=== PATIENT | female | born 1950 | race Caucasian/White ===

== ENCOUNTER 2016-09-09 09:04 | Inpatient (IN) | payer MEDICAID ==
[2016-09-09 09:07] VITALS: BMI 41.7
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
[2016-09-09] MEDS ORDERED: Morphine 4 MG/ML VIAL ONE (10:12)
[2016-09-09] MEDS ORDERED: Sodium Chloride 0.9% 1,000 ML IV ONE (11:01)
[2016-09-09] MEDS ORDERED: Sodium Chloride 0.9% 1,000 ML ONE (11:35)
[2016-09-09 11:56] LABS: BASO % 0.1 % (0.0-2.0); EOS % 0.2 % (0.0-4.0); HEMATOCRIT 37.1 % (34.0-47.0); LYMPH # 0.9 K/uL (1.0-4.3); LYMPH % 7.6 % (20.0-40.0); MEAN CELL VOLUME 89.2 fL (81.0-99.0); MEAN CORPUSCULAR HEMOGLOBIN 29.1 pg (27.0-31.0); MEAN CORPUSCULAR HGB CONC 32.6 g/dL (33.0-37.0); MEAN PLATELET VOLUME 10.4 fL (7.2-11.7); MONO # 0.4 K/uL (0.0-0.8); MONO % 3.2 % (0.0-10.0); NRBC % 0.1 % (0.0-2.0); PLATELET COUNT 174 K/uL (130-400); RED CELL DISTRIBUTION WIDTH 13.5 % (11.5-14.5); WHITE BLOOD COUNT 12.2 K/uL (4.8-10.8)
--- NOTE | 2016-09-09 12:03 | RAD ---
PROCEDURE: Radiographs of the left humerus. HISTORY: TRAUMA COMPARISON: Correlation made with concurrent radiographs of the left shoulder FINDINGS: BONES: Comminuted fracture of the proximal left humeral head and proximal humeral shaft. There appears to be anterior inferior dislocation of the left humeral head with respect to the glenoid. SOFT TISSUES: Normal. OTHER FINDINGS: None. IMPRESSION: Comminuted fracture of the proximal left humeral head and proximal humeral shaft. There appears to be anterior inferior dislocation of the left humeral head with respect to the glenoid.
[2016-09-09 12:04] LABS: CHLORIDE 101 mmol/L (98-107); POTASSIUM 3.9 mmol/L (3.6-5.2); SODIUM 137 mmol/L (132-148)
[2016-09-09 12:06] LABS: BILIRUBIN,TOTAL 0.7 mg/dL (0.2-1.3); GFR AFRICAN-AMERICAN > 60
--- NOTE | 2016-09-09 12:06 | RAD ---
PROCEDURE: Radiographs of the Left Shoulder HISTORY: TRAUMA COMPARISON: No correlation made with concurrent radiograph of the left humerus FINDINGS: BONES: Comminuted fracture of the proximal left humeral head and proximal humeral shaft. There appears to be anterior inferior dislocation of the left humeral head with respect to the glenoid. Questionable fracture inferior glenoid rim JOINTS: As above SOFT TISSUES: Normal. OTHER FINDINGS: None. IMPRESSION: Comminuted fracture of the proximal left humeral head and proximal humeral shaft. There appears to be anterior inferior dislocation of the left humeral head with respect to the glenoid. Questionable fracture inferior glenoid rim
[2016-09-09 12:07] LABS: ALB/GLOB RATIO 1.3 (1.0-2.1); ALKALINE PHOSPHATASE 94 U/L (38-126); ALT/SGPT 20 U/L (9-52); AST/SGOT 22 U/L (14-36); BLOOD UREA NITROGEN 19 mg/dL (7-17); CARBON DIOXIDE 27 mmol/L (22-30); GLUCOSE,RANDOM 179 mg/dL (65-105); TOTAL PROTEIN 6.7 g/dL (6.3-8.3)
[2016-09-09 12:08] LABS: CALCIUM 8.5 mg/dl (8.6-10.4)
[2016-09-09 12:13] LABS: INR 1.3; NEUTROPHIL 86 % (50-75); REACTIVE LYMPHOCYTES 1 % (0-0); TOTAL CELLS COUNTED 100
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
[2016-09-09] MEDS: Pantoprazole 40 mg EC Tab PO SCH (13:35)
[2016-09-09] MEDS: (Novolin R) Insulin Human Regular 100 units/ml vial SC SCH ×2 (17:34→21:25)
--- NOTE | 2016-09-09 19:44 | RAD ---
PROCEDURE: CHEST RADIOGRAPH, 1 VIEW HISTORY: Pre Op COMPARISON: None available. FINDINGS: LUNGS: Poor inspiration with low lung volumes, mild crowded bronchovascular markings and mild bibasilar atelectasis PLEURA: No pneumothorax or pleural fluid seen. CARDIOVASCULAR: Cardiomegaly OSSEOUS STRUCTURES: Comminuted fracture of the left humeral head and neck with inferior dislocation of the left humeral head with respect to the glenoid apparent inferior dislocation left humeral head with respect to the glenoid. There also appears to be a dextroscoliosis centered in the upper/mid thoracic region. This could be compensatory for a levoscoliosis of the lumbar spine. Clinic correlation recommended. VISUALIZED UPPER ABDOMEN: Normal. OTHER FINDINGS: None. IMPRESSION: Comminuted fracture left humeral head/neck with apparent. Poor inspiration with low lung volumes, mild crowded bronchovascular markings and mild bibasilar atelectasis
--- NOTE | 2016-09-09 19:45 | RAD ---
PROCEDURE: Left Knee Radiographs. HISTORY: Pain. COMPARISON: None. FINDINGS: BONES: No definitive radiographic evidence of acute displaced fracture nor dislocation. The osseous structures intact. Significant tricompartmental degenerative osteoarthritis. JOINTS: Normal. No osteoarthritis. JOINT EFFUSION: Questionable trace joint effusion OTHER FINDINGS: None. IMPRESSION: No definitive radiographic evidence of acute displaced fracture nor dislocation. The osseous structures intact. .Significant tricompartmental degenerative osteoarthritis. Questionable trace joint effusion. If symptoms persist or occult fracture suspected clinically, consider followup CT scan of the
[2016-09-10] MEDS: Levothyroxine 75 MCG TAB PO SCH (05:38)
[2016-09-10] MEDS: (Novolin R) Insulin Human Regular 100 units/ml vial SC SCH ×4 (07:45→22:35)
[2016-09-10 07:59] LABS: ALKALINE PHOSPHATASE 83 U/L (38-126); ALT/SGPT 24 U/L (9-52); AST/SGOT 21 U/L (14-36); BILIRUBIN,TOTAL 1.2 mg/dL (0.2-1.3); BLOOD UREA NITROGEN 11 mg/dL (7-17); CARBON DIOXIDE 26 mmol/L (22-30); CHLORIDE 102 mmol/L (98-107); CHOLESTEROL 144 mg/dL (0-199); GFR AFRICAN-AMERICAN > 60; GLUCOSE,RANDOM 115 mg/dL (65-105); POTASSIUM 3.8 mmol/L (3.6-5.2); SODIUM 135 mmol/L (132-148); TOTAL PROTEIN 6.1 g/dL (6.3-8.3)
[2016-09-10 08:03] LABS: BASO % 0.3 % (0.0-2.0); EOS # 0.1 K/uL (0.0-0.7); EOS % 0.8 % (0.0-4.0); HEMATOCRIT 34.7 % (34.0-47.0); LYMPH # 1.6 K/uL (1.0-4.3); LYMPH % 23.9 % (20.0-40.0); MEAN CORPUSCULAR HEMOGLOBIN 29.8 pg (27.0-31.0); MEAN CORPUSCULAR HGB CONC 33.4 g/dL (33.0-37.0); MEAN PLATELET VOLUME 10.5 fL (7.2-11.7); MONO # 0.3 K/uL (0.0-0.8); MONO % 5.3 % (0.0-10.0); NRBC % 0.1 % (0.0-2.0); RED CELL DISTRIBUTION WIDTH 13.6 % (11.5-14.5); WHITE BLOOD COUNT 6.5 K/uL (4.8-10.8)
--- NOTE | 2016-09-10 10:34 | CP.PCM.PN ---
<Luiz Greenfield - Last Filed: 09/10/16 10:31> Subjective - Date & Time of Evaluation Date of Evaluation: 09/10/16 Time of Evaluation: 08:00 - Subjective Subjective: Medicine Note- Hospitalist Service Patient was seen and examined at bedside. Patient reports no acute complaints at this time. She still complain of shoulder pain. Patient understands she will be going for surgery tomorrow. No events overnight, per nursing. Objective - Vital Signs/Intake and Output Vital Signs (last 24 hours): Temp Pulse Resp BP Pulse Ox 97.5 F L 71 20 117/60 94 L 09/10/16 08:00 09/10/16 08:00 09/10/16 08:00 09/10/16 08:00 09/10/16 08:00 Intake and Output: 09/10/16 09/10/16 06:59 18:59 Intake Total 240 Balance 240 - Medications Medications: Current Medications Alprazolam (Xanax) 0.5 mg PO TID PRN PRN Reason: Anxiety Insulin Human Regular (Novolin R) 0 unit SC ACHS [facility] PRN Reason: Protocol Last Admin: 09/09/16 21:25 Dose: Not Given Levothyroxine Sodium (Synthroid) 75 mcg PO DAILY@0630 [facility] Last Admin: 09/10/16 05:38 Dose: 75 mcg Losartan Potassium (Cozaar) 100 mg PO DAILY [facility] Last Admin: 09/09/16 13:35 Dose: 100 mg Metformin HCl (Glucophage) 1,000 mg PO BID [facility] Last Admin: 09/09/16 17:32 Dose: 1,000 mg Morphine Sulfate (Morphine) 2 mg IVP Q4 PRN PRN Reason: Pain, severe (8-10) Last Admin: 09/10/16 02:56 Dose: 2 mg Pantoprazole Sodium (Protonix Ec Tab) 40 mg PO DAILY [facility] Last Admin: 09/09/16 13:35 Dose: 40 mg - Labs Labs: 09/10/16 07:26 09/10/16 07:26 PT 14.3 SECONDS (9.7-12.2) H 09/09/16 11:48 INR 1.3 09/09/16 11:48 APTT 39 SECONDS (21-34) H 09/09/16 11:48 - Constitutional Appears: Non-toxic, No Acute Distress - Head Exam Head Exam: ATRAUMATIC, NORMAL INSPECTION, NORMOCEPHALIC - Eye Exam Pupil Exam: NORMAL ACCOMODATION, PERRL - ENT Exam ENT Exam: Mucous Membranes Moist - Respiratory Exam Respiratory Exam: Clear to Ausculation Bilateral, NORMAL BREATHING PATTERN. absent: Prolonged Expiratory Phase, Rales, Rhonchi, Wheezes - Cardiovascular Exam Cardiovascular Exam: REGULAR RHYTHM, +S1, +S2 - GI/Abdominal Exam GI & Abdominal Exam: Soft, Normal Bowel Sounds. absent: Tenderness, Diminished Bowel Sounds, Hernia, Hyperactive Bowel Sounds, Hypoactive Bowel Sounds - Extremities Exam Extremities Exam: Normal Capillary Refill Additional comments: left shoulder still in sling, limited mobility, tender - Neurological Exam Neurological Exam: Alert, Awake, Oriented x3 - Psychiatric Exam Psychiatric exam: Normal Affect, Normal Mood - Skin Skin Exam: Dry, Intact, Normal Color, Warm Assessment and Plan (1) Fracture dislocation of left shoulder joint Status: Acute (2) Hypertension Status: Acute (3) Diabetes Status: Acute (4) Hyperlipidemia Status: Acute (5) Hypothyroid Status: Acute (6) Prophylactic measure Status: Acute - Assessment and Plan (Free Text) Assessment: (1) Fracture dislocation of left shoulder joint Status: Acute Comment: Humerus Xray- 09/09/16- Comminuted fracture of the proximal left humeral head and proximal humeral shaft. There appears to be anterior inferior dislocation of the left humeral head with respect to the glenoid. Shoulder X ray- Comminuted fracture of the proximal left humeral head and proximal humeral shaft. There appears to be anterior inferior dislocation of the left humeral head with respect to the glenoid. Questionable fracture inferior glenoid rim. F /u Knee Xray. f/u CXR. EKG- NSR w occasional PVCs, prolonged QT, nonspecific T wave changes- 70 bpm. Scheduled for OR on sunday, NPO after MN on Sunday. Detsky score - 0- 6% risk of cardiac complications. Patient may proceed with OR (2) Hypertension Status: Acute Comment: Continue home med equivalent- Losartan 100mg PO Daily (3) Diabetes Status: Acute Comment: Heart Healthy, mod CHO diet. Accucheck. RISS. Metformin 1000mg PO BID. f/u Hgb A1C (4) Hyperlipidemia Status: Acute Comment: Patient is not currently on medications. Will recheck FLP (5) Hypothyroid Status: Acute Comment: continue home med: levothyroxine 75mcg PO Daily . F/u TSH (6) Anxiety Status: Acute Comment: Xanax 0.5mg TID PRN (7) Prophylactic measure Status: Acute Comment: Protonix 40mg PO Daily. Hold Heparin due to preop. SCDs <Rc Falcon H - Last Filed: 09/10/16 11:05> Objective - Vital Signs/Intake and Output Vital Signs (last 24 hours): Temp Pulse Resp BP Pulse Ox 97.5 F L 71 20 117/60 94 L 09/10/16 08:00 09/10/16 08:00 09/10/16 08:00 09/10/16 08:00 09/10/16 08:00 Intake and Output: 09/10/16 09/10/16 06:59 18:59 Intake Total 240 Balance 240 - Medications Medications: Current Medications Alprazolam (Xanax) 0.5 mg PO TID PRN PRN Reason: Anxiety Insulin Human Regular (Novolin R) 0 unit SC [facility] PRN Reason: Protocol Last Admin: 09/10/16 07:45 Dose: Not Given Levothyroxine Sodium (Synthroid) 75 mcg PO DAILY@0630 [facility] Last Admin: 09/10/16 05:38 Dose: 75 mcg Losartan Potassium (Cozaar) 100 mg PO DAILY [facility] Last Admin: 09/10/16 10:44 Dose: 100 mg Metformin HCl (Glucophage) 1,000 mg PO BID [facility] Last Admin: 09/10/16 10:43 Dose: 1,000 mg Morphine Sulfate (Morphine) 2 mg IVP Q4 PRN PRN Reason: Pain, severe (8-10) Last Admin: 09/10/16 02:56 Dose: 2 mg Pantoprazole Sodium (Protonix Ec Tab) 40 mg PO DAILY [facility] Last Admin: 09/10/16 10:43 Dose: 40 mg - Labs Labs: 09/10/16 07:26 09/10/16 07:26 PT 14.3 SECONDS (9.7-12.2) H 09/09/16 11:48 INR 1.3 09/09/16 11:48 APTT 39 SECONDS (21-34) H 09/09/16 11:48 Attending/Attestation - Attestation I have personally seen and examined this patient.: Yes I have fully participated in the care of the patient.: Yes I have reviewed all pertinent clinical information, including history, physical exam and plan: Yes Notes (Text): Medical Attending: Patient was seen and examined by me. Agree with the above note by the resident. Reviewed CXRAY, EKG, lab work, vital signs stable as well. Her Blood pressure is controlled. Patient is medical clear for surgery tomorrow. As mentioned before she has a fracture of the left humeral head and proximal humeral shaft. She also has a dislocation of the left humeral head as well. At some point needs to be on a statin medication especially considering her body habitus. Needs diet, lifestyle changes thank you Rc Falcon
[2016-09-10] MEDS: Pantoprazole 40 mg EC Tab PO SCH (10:43)
--- NOTE | 2016-09-10 16:30 | CT ---
PROCEDURE: CT Cervical Spine without contrast HISTORY: <fall> COMPARISON: None available. TECHNIQUE: Axial computed tomography images were obtained of the cervical spine without the use of intravenous contrast. Coronal and sagittal reformatted images were created and reviewed. Radiation dose: Total exam DLP = 646.85 mGy-cm. This CT exam was performed using one or more of the following dose reduction techniques: Automated exposure control, adjustment of the mA and/or kV according to patient size, and/or use of iterative reconstruction technique. FINDINGS: VERTEBRAE: No acute compression fractures no retropulsed fragments. Vertebral bodies exhibit normal stature. There is straightening of the normal cervical lordosis which could be due to patient positioning in the gantry however underlying element of muscle spasm may contribute. Vertebral bodies and facets are otherwise normally aligned. DISCS/SPINAL CANAL/NEURAL FORAMINA: Mild multilevel degenerative spondylosis. Changes include varying degrees of disc space narrowing with mild endplate eburnation and small disc bulge ridge complex is contiguous with mildly hypertrophic uncovertebral joints. Facets also mildly overgrown at several levels. At the C2-C3 level, there is very minor central disc bulging that appears to reach the ventral surface of the cord. Central canal appears adequate. Exit foramina are also adequate despite prominent uncovertebral facets. At the C3-C4 level, there is a small central and bilateral disc bulge ridge complex. Uncovertebral and facets are slightly hypertrophic. Central canal is mildly narrowed. Exit foramina appear adequate. At the C4-C5 level, there is smaller on disc ridge complex contiguous with mild to moderately hypertrophic uncovertebral joints. Facets are also mild to moderately hypertrophic. Changes result in mild moderate canal stenosis and cord compression. Exit foramina are narrowed bilaterally right greater than left. At the C5-C6 level, there is asymmetric disc ridge complex larger on the left than right and contiguous with hypertrophic uncovertebral joints. Facets are mildly hypertrophic. There is central canal narrowing, cord compression more so on the left side and bilateral foraminal stenosis. Note that the canal is not well delineated at the C6-C7 level due to crossing streak and beam hardening artifact arising from dense clavicles and shoulder girdles. PARASPINAL SOFT TISSUES: Unremarkable. OTHER FINDINGS: None. Enlarged thyroid gland. Coarse calcifications right lobe thyroid gland. . Followup thyroid ultrasound recommended. Lung apices are clear. Note made of tiny calcifications in the region of the right and left lingual tonsils likely postinflammatory in nature. IMPRESSION: No acute fractures. On mild to moderate multilevel degenerative spondylosis as detailed above. Enlarged thyroid gland with coarse calcifications right lobe. . Thyroid ultrasound followup recommended.
[2016-09-10 17:34] LABS: RBC URINE < 1 /hpf (0-3); URINE BACTERIA FEW (<OCC); URINE BILIRUBIN NEGATIVE (NEGATIVE); URINE BLOOD 1+ (NEGATIVE); URINE COLOR Yellow (YELLOW); URINE GLUCOSE (UA) NORMAL (Normal); URINE KETONE NEGATIVE (NEGATIVE); URINE LEUKOCYTE ESTERASE 3+ Leu/uL (Negative); URINE PROTEIN NEGATIVE (NEGATIVE); URINE UROBILINOGEN NORMAL mg/dL (0.2-1.0); WBC URINE 29 /hpf (0-5)
[2016-09-11] MEDS: Levothyroxine 75 MCG TAB PO SCH (06:52)
[2016-09-11 07:55] LABS: BASO % 0.5 % (0.0-2.0); EOS # 0.1 K/uL (0.0-0.7); EOS % 0.7 % (0.0-4.0); HEMATOCRIT 36.8 % (34.0-47.0); LYMPH # 2.2 K/uL (1.0-4.3); LYMPH % 28.7 % (20.0-40.0); MEAN CELL VOLUME 88.8 fL (81.0-99.0); MEAN CORPUSCULAR HEMOGLOBIN 29.6 pg (27.0-31.0); MEAN CORPUSCULAR HGB CONC 33.4 g/dL (33.0-37.0); MEAN PLATELET VOLUME 10.6 fL (7.2-11.7); MONO # 0.4 K/uL (0.0-0.8); MONO % 5.3 % (0.0-10.0); RED CELL DISTRIBUTION WIDTH 13.5 % (11.5-14.5); WHITE BLOOD COUNT 7.6 K/uL (4.8-10.8)
[2016-09-11] MEDS: (Novolin R) Insulin Human Regular 100 units/ml vial SC SCH ×3 (08:26→17:30)
[2016-09-11 08:35] LABS: CHLORIDE 101 mmol/L (98-107); POTASSIUM 3.6 mmol/L (3.6-5.2); SODIUM 136 mmol/L (132-148)
[2016-09-11 08:37] LABS: AST/SGOT 24 U/L (14-36); BILIRUBIN,TOTAL 1.5 mg/dL (0.2-1.3); CARBON DIOXIDE 25 mmol/L (22-30); GFR AFRICAN-AMERICAN > 60
[2016-09-11 08:38] LABS: ALB/GLOB RATIO 1.1 (1.0-2.1); ALKALINE PHOSPHATASE 83 U/L (38-126); ALT/SGPT 23 U/L (9-52); BLOOD UREA NITROGEN 12 mg/dL (7-17); CALCIUM 8.4 mg/dl (8.6-10.4); GLUCOSE,RANDOM 115 mg/dL (65-105); TOTAL PROTEIN 6.6 g/dL (6.3-8.3)
[2016-09-11] MEDS ORDERED: Bacitracin 150,000 UNIT in Sodium Chloride 0.9% Irrig 3,000 ML IR SCH (08:47)
[2016-09-11 08:58] LABS: THYROID STIMULATING HORMONE 1.95 mIU/L (0.46-4.68)
--- NOTE | 2016-09-11 09:27 | CP.PCM.PN ---
<Gustavo Case - Last Filed: 09/11/16 19:15> Subjective - Date & Time of Evaluation Date of Evaluation: 09/11/16 Time of Evaluation: 09:46 - Subjective Subjective: PGY 1 Medicine Note- Dr. Branham's service Pt seen and examined in no acute distress. Patient has left sided arm pain at the site of injury. Patient to OR today for arthroplasty and rotator cuff repair. At this time, denies subjective fevers, chills, nausea, vomiting, dysuria, chest pain, paresthesias, palpitations, headaches, lightheadedness, nausea, vomiting or urinary frequency. Objective - Vital Signs/Intake and Output Vital Signs (last 24 hours): Temp Pulse Resp BP Pulse Ox 98.7 F 76 20 128/82 95 09/11/16 08:00 09/11/16 08:00 09/11/16 08:00 09/11/16 08:00 09/11/16 08:00 Intake and Output: 09/11/16 09/11/16 06:59 18:59 Intake Total 100 Balance 100 - Medications Medications: Current Medications Alprazolam (Xanax) 0.5 mg PO TID PRN PRN Reason: Anxiety Last Admin: 09/10/16 19:08 Dose: 0.5 mg Ceftriaxone Sodium 1 gm/ (Sodium Chloride) 100 mls @ 100 mls/hr IVPB DAILY@ 0900 [facility] Bacitracin 150,000 unit/ (Sodium Chloride) 3,000 mls @ 3,000 mls/hr IR .Q1H [facility] Stop: 09/11/16 09:46 Insulin Human Regular (Novolin R) 0 unit SC ACHS [facility] PRN Reason: Protocol Last Admin: 09/11/16 08:26 Dose: Not Given Levothyroxine Sodium (Synthroid) 75 mcg PO DAILY@0630 [facility] Last Admin: 09/11/16 06:52 Dose: 75 mcg Losartan Potassium (Cozaar) 100 mg PO DAILY [facility] Last Admin: 09/10/16 10:44 Dose: 100 mg Metformin HCl (Glucophage) 1,000 mg PO BID [facility] Last Admin: 09/10/16 18:00 Dose: Not Given Morphine Sulfate (Morphine) 2 mg IVP Q4 PRN PRN Reason: Pain, severe (8-10) Last Admin: 09/10/16 18:05 Dose: 2 mg Pantoprazole Sodium (Protonix Ec Tab) 40 mg PO DAILY [facility] Last Admin: 09/10/16 10:43 Dose: 40 mg - Labs Labs: 09/11/16 07:51 09/11/16 07:51 PT 14.3 SECONDS (9.7-12.2) H 09/09/16 11:48 INR 1.3 09/09/16 11:48 APTT 39 SECONDS (21-34) H 09/09/16 11:48 - Constitutional Appears: Non-toxic, No Acute Distress - Head Exam Head Exam: ATRAUMATIC, NORMAL INSPECTION, NORMOCEPHALIC - Eye Exam Eye Exam: EOMI, Normal appearance, PERRL Pupil Exam: NORMAL ACCOMODATION, PERRL - ENT Exam ENT Exam: Mucous Membranes Moist, Normal Exam - Neck Exam Neck Exam: Full ROM - Respiratory Exam Respiratory Exam: NORMAL BREATHING PATTERN. absent: Wheezes - Cardiovascular Exam Cardiovascular Exam: +S1, +S2 - GI/Abdominal Exam GI & Abdominal Exam: Soft, Normal Bowel Sounds - Extremities Exam Extremities Exam: Joint Swelling, Normal Capillary Refill. absent: Full ROM - Back Exam Back Exam: NORMAL INSPECTION - Neurological Exam Neurological Exam: Alert, Awake, Oriented x3 - Skin Skin Exam: Normal Color, Warm Assessment and Plan - Assessment and Plan (Free Text) Assessment: (1) Fracture dislocation of left shoulder joint Status: Acute Comment: Humerus Xray- 09/09/16- Comminuted fracture of the proximal left humeral head and proximal humeral shaft. Patient to OR today for repair. F/U Ortho recommendations (2) Hypertension Status: Acute Comment: Continue home med equivalent- Losartan 100mg PO Daily (3) Diabetes Status: Acute Comment: Heart Healthy, mod CHO diet. Accucheck. RISS. Metformin 1000mg PO BID HELD. Hgb 5.7 (4) Hyperlipidemia Status: Acute Comment: Patient is not currently on medications. FLP WNL. Continued Diet and exercise encouraged (5) Hypothyroid Status: Acute Comment: continue home med: levothyroxine 75mcg PO Daily . TSH WNL. F/U Free T4. Thyroid Calcifications noted on CT imaging. (6) Anxiety Status: Acute Comment: Xanax 0.5mg TID PRN (7) Prophylactic measure Status: Acute Comment: Protonix 40mg PO Daily. Hold Heparin due to preop. SCDs <Carrol,Prasanna M - Last Filed: 09/12/16 09:08> Objective - Vital Signs/Intake and Output Vital Signs (last 24 hours): Temp Pulse Resp BP Pulse Ox 99.2 F 84 18 94/61 L 98 09/12/16 06:50 09/12/16 06:50 09/12/16 00:42 09/12/16 06:50 09/12/16 00:42 - Medications Medications: Current Medications Alprazolam (Xanax) 0.5 mg PO TID PRN PRN Reason: Anxiety Last Admin: 09/10/16 19:08 Dose: 0.5 mg Ceftriaxone Sodium 1 gm/ (Sodium Chloride) 100 mls @ 100 mls/hr IVPB DAILY@ 0900 [facility] Last Admin: 09/12/16 08:47 Dose: 100 mls/hr Sodium Chloride (Sodium Chloride 0.9%) 1,000 mls @ 75 mls/hr IV .[id number] [facility] Last Admin: 09/12/16 06:48 Dose: 75 mls/hr Insulin Human Regular (Novolin R) 0 unit SC ACHS [facility] PRN Reason: Protocol Last Admin: 09/11/16 17:30 Dose: 2 unit Levothyroxine Sodium (Synthroid) 75 mcg PO DAILY@0630 [facility] Last Admin: 09/12/16 06:48 Dose: 75 mcg Losartan Potassium (Cozaar) 100 mg PO DAILY [facility] Last Admin: 09/11/16 11:00 Dose: Not Given Metformin HCl (Glucophage) 1,000 mg PO BID [facility] Last Admin: 09/11/16 09:45 Dose: Not Given Morphine Sulfate (Morphine) 2 mg IVP Q4 PRN PRN Reason: Pain, severe (8-10) Last Admin: 09/10/16 18:05 Dose: 2 mg Oxycodone/Acetaminophen (Percocet 5/325 Mg Tab) 2 tab PO Q4H PRN PRN Reason: Pain, moderate (4-7) Stop: 09/14/16 15:57 Pantoprazole Sodium (Protonix Ec Tab) 40 mg PO DAILY [facility] Last Admin: 09/11/16 09:45 Dose: Not Given - Labs Labs: 09/12/16 07:19 09/12/16 07:19 PT 14.3 SECONDS (9.7-12.2) H 09/09/16 11:48 INR 1.3 09/09/16 11:48 APTT 39 SECONDS (21-34) H 09/09/16 11:48 Attending/Attestation - Attestation I have personally seen and examined this patient.: Yes I have fully participated in the care of the patient.: Yes I have reviewed all pertinent clinical information, including history, physical exam and plan: Yes Notes (Text): 09/12/16 09:08 Patient was seen and examined at bedside with the resident I discussed the plan of care with the resident and agree with the above history and physical and assessment/plan by the resident.
[2016-09-11] MEDS: Pantoprazole 40 mg EC Tab PO SCH (09:45)
[2016-09-11] MEDS: Sodium Chloride 0.9% 1,000 ML IV SCH (11:45)
[2016-09-11] MEDS ORDERED: Bacitracin Ointment 30 GM TUBE ONE (12:22)
[2016-09-11] MEDS ORDERED: ceFAZolin IV 1 gm in Dextrose 1 GM/50 ML BAG IVPB ONE ×2 (12:22→13:07)
[2016-09-11] MEDS ORDERED: EPINEPHrine 1 mg/ml (1:1000) Inj ONE (12:22)
[2016-09-11] MEDS ORDERED: Propofol 10 mg/ml Inj (20 ML) ONE (12:30)
[2016-09-11] MEDS ORDERED: Midazolam 2 MG/2 ML VIAL ONE (12:30)
[2016-09-11] MEDS ORDERED: Lactated Ringer's 1,000 ML IV ONE ×2 (12:40→15:30)
[2016-09-11] MEDS ORDERED: Rocuronium 10 mg/ml (10 ml) ONE (14:35)
[2016-09-11] MEDS ORDERED: Neostigmine Methylsulfate 3mg/3ml Syringe IV ONE (15:09)
[2016-09-11] MEDS ORDERED: Morphine 4 MG/ML VIAL ONE (15:35)
--- NOTE | 2016-09-11 15:43 | PCM.SURG1 ---
Surgeon's Initial Post Op Note - Surgeon's Notes Surgeon: Jerry Landscape Foreman: 1st assist FLOYD Dewey/2nd assist Do Alvarado Type of Anesthesia: General Endo Anesthesia Administered By: Dr Mohsen Hardy Pre-Operative Diagnosis: Displaced/comminuted patholgic 4 part fx L prox humerus Operative Findings: as above. attrition biceps tendon. tear rotator cuff L shoulder Post-Operative Diagnosis: as above Operation Performed: L Reverse total shoulder arthroplasty. primary repair L rotator cuff. biceps tenodesis. arthrotomy/synovectomy/excision labrum Specimen/Specimens Removed: bone/ cartilage/synvoium Estimated Blood Loss: EBL {In ML}: 210 Blood Products Given: N/A Drains Used: No Drains Post-Op Condition: Good Date of Surgery/Procedure: 09/11/16 Time of Surgery/Procedure: 12:40 (incision time 1:30)
[2016-09-11] MEDS ORDERED: HYDROmorphone 0.5 mg/0.5 ml ISec IVP PRN (15:56)
[2016-09-11] MEDS ORDERED: Bupivacaine HCl 0.25% PF (10 ml) Inj ONE (16:06)
[2016-09-11] MEDS ORDERED: Lidocaine Hydrochloride 5 ML INJ ONE (16:07)
--- NOTE | 2016-09-11 16:32 | PCM.ANESB1 ---
Interscalene Block - Brachial Plexus Date of Procedure: 09/11/16 Anesthesiologist: Tomy Pre-Procedure Diagnosis: s/p left total shoulder arthroplasty Post-Procedure Diagnosis: same Procedure Performed: Interscalene Block of Brachial Plexus Left - Procedure Interscalene Block of Brachial Plexus: This procedure was explained to the patient that it is for post-operative pain management. Consent was obtained after a thorough discussion with the patient regarding the benefits and possible complications of local anesthetic block of the Brachial Plexus at the Interscalene area. The patient lying supine in PACU with monitors on. Time out was held with the circulating nurse to confirm the correct surgery and appropriate block. The patient's head was gently rotated away from the left operative shoulder and the anterior scalene groove was carefully palpated. The ultrasound transducer was then applied to the skin in the transverse plane and the brachial plexus was visualized lateral to the carotid artery and in between the anterior and middle scalene muscles. After identification,the anterior lateral portion of the neck was prepped with chloraprep and 2mL of Lidocaine 1% was injected subcutaneously for topical analgesia. At this point, a # 22 gauge Stimuplex 2 inches insulated needle was inserted into the interscalene groove and directed in a caudal and midline direction. The needle was inserted lateral to the ultrasound transducer in-plane towards the brachial plexus in a [id number] direction. Needle advancement was performed carefully under direct ultrasound visualization. After repeated negative aspiration, 5cc of 0.25% Bupivacaine were injected and this was followed with 25cc of 0.25% Bupivacaine. Negative intermittent aspiration, no heme or paresthesia. Under ultrasound guidance the local anesthetics were observed surrounding the roots of the brachial plexus. The needle was removed intact and sterile dressing was applied. The patient had stable vital signs, was conscious and in no apparent distress. The patient tolerated the interscalene block of the bracheal plexus well with stable vital signs.
--- NOTE | 2016-09-11 17:04 | RAD ---
PROCEDURE: Radiographs of the Left Shoulder HISTORY: pt in pacu s/p total shoulder COMPARISON: No prior. FINDINGS: BONES: Satisfactory position alignment of components of the left shoulder arthroplasty. Humeral, intramedullary component satisfactory aligned as is the glenoid component. JOINTS: Normal. Glenohumeral and acromioclavicular joints preserved. No osteoarthritis. SOFT TISSUES: Normal. OTHER FINDINGS: None. IMPRESSION: Satisfactory postoperative status.
--- NOTE | 2016-09-11 17:26 | RAD ---
PROCEDURE: Left Wrist Radiographs. HISTORY: pt in pacu, wrist fx f/u, remove splint for xrays COMPARISON: None. FINDINGS: BONES: Normal. No fractureKey old ulnar styloid fracture. Healing distal radial fracture. Diffuse osteopenia. No new/ acute fractures. . JOINTS: Normal. No dislocation. SOFT TISSUES: Normal. OTHER FINDINGS: None. IMPRESSION: No acute fractures. Healed ulnar styloid fracture, radiographic healing of distal radial fracture with mild ventral angulation.
--- NOTE | 2016-09-11 18:25 | OP ---
PROCEDURE DATE: 09/11/2016 PREOPERATIVE DIAGNOSIS: Pathologic 4-part comminuted proximal humeral fracture, subluxation. POSTOPERATIVE DIAGNOSIS: Pathologic 4-part comminuted proximal humeral fracture, subluxation. PROCEDURES: 1. Primary reverse left shoulder arthroplasty. 2. Repair of rotator cuff. 3. Biceps tenodesis. 4. Arthrotomy and excision glenoid labrum. SURGEON: Rogerio Edwards MD PLASTER MACHINE TENDER: Aleena Lira, Certified Registered Nursing Manager Payment. SECOND PROBATE CLERK: Do Maravilla PA-C. COMPLICATIONS: None. DRAINS: None. OPERATIVE INDICATION: The patient was evaluated by me in the Emergency Room at [facility] after she had fallen the doctor's office Sunday morning. The patient fell on an outstretched left upper extremity. The patient had marked swelling, pain and restricted range of motion. The patient prese nted to the ER with her son, Carlos Eduardo. The patient was evaluated. Pros, cons, risks and benefits of s houlder replacement arthroplasty were discussed. The possibility of mechanical failure, infection, t hromboembolic disease, secondary or tertiary surgery were discussed. The possibility of nerve injury , stiffness, mechanical failure, infection, secondary or tertiary surgery were discussed. The patien t can no longer stand the discomfort and wished the surgery be accomplished. Alternative procedures were discussed including benign neglect and open reduction internal fixation. OPERATIVE PROCEDURE: After having obtained informed consent, after thoroughly discussing the pros, c ons, risks and benefits of the surgical approach, the possibility of mechanical failure, infection, t hromboembolic disease, secondary or tertiary surgery is discussed; the patient can no longer stand th e discomfort and wished the surgery to be accomplished. The informed consent is obtained in the pres ence of her son who is a culturally competent reducer, Carlos Eduardo. After having obtained informed consent in the above fashion, after having identified side, site, and procedure, a critical pause/timeout, after the satisfactory induction of general endotracheal anesthe jessica by me Dr. Hardy, the patient identified as correct, in the modified kelley chair position, the left upper extremity is prepped and free draped in the usual fashion for upper extremity surgery. The [facility] positioner was employed. After sterilely prepping and draping, after having identified side, site and procedure and a critical pause/timeout, after the satisfactory induction of the anesthetic, after sterilely prepping and draping, the topographic anatomy of the shoulder was marked, the spine a nd the scapula, lateral aspect of the acromion, coracoid and the distal clavicle. An incision is raghu cribed from the distal third of the clavicle to the area of the point of the deltoid. The skin incis ion is insufflated with a solution of 1:1000 epinephrine and 250 mL of saline. The subcutaneous tiss ue was insufflated and the tissue was insufflated as well. This having been accomplished, the skin i ncision is carried down through the skin and subcutaneous tissue. The arm was placed in external rot ation, the fascia is carefully divided. Dissection stays superficial to the fascia. The deltopector al interval is identified and the self-retaining retractor is placed between the strap muscles medial ly and the deltoid laterally. Clavipectoral fascia was divided and the strap muscles were reflected using the self-retaining retractor, the rotator cuff is incised and elevated from the bony fragment. The bony fragment is removed. The head and neck assembly is removed. There was found to be comminu tion in 4-part proximal humerus fracture. The comminution is excised. At this point in time, the gl enoid is exposed. Arthrotomy and excision of the glenoid labrum was accomplished, the biceps tendon is found to be tenotomized and is reflected. This having been accomplished, the rotator cuff mediall y and laterally is tagged. At this point in time, using the anterior retractor glenoid, inferior and superior retractor and the posterior retractor, the glenoid is identified. The guidewire is placed, sequential reaming is accomplished and the small glenoid was reamed and impacted. This was held in the position is found to be acceptable, with the 22 mm screw superiorly, 26 mm inferiorly. The stabi lity is found to be excellent in the glenosphere. This having been accomplished, attention is turned to the humeral side. The glenosphere is impacted after the glenoid plate is impacted and held and t he glenosphere is attached with the screw. This having been accomplished, the humerus is exposed, th e biceps tendon having been tenotomized and tagged, the rotator cuff is tagged as well. At this poin t in time, sequential reaming is carried out to a #15 humeral component. The bone was extremely oste openic. This having been accomplished, the bone having been extremely osteopenic, the reaming is car ried out. The stem was placed in 20 degrees of retroversion and the modular proximal body was impact ed and screw fixation is accomplished. Cold weld is augmented by screw fixation. Trialing is accomp lished with 9 polyethylene and the position is found to be stable in all planes. This having been ac complished, the trial was removed. The 9 mm polyethylene is impacted. The shoulder was placed throu gh a range, there is no evidence of shucking, or push pull. The position is found to be acceptable. The shoulder was well reduced. At this point in time, the rotator cuff stay sutures were placed thr ough the eyelet in the prosthesis and the rotator cuff was repaired to the prosthesis and with the in terrupted FiberWire. This having been accomplished, the wound is thoroughly irrigated, biceps tenode sis is accomplished to that mass. Repair having been accomplished, biceps tenodesis having been acco mplished, closure is in layers. The clavipectoral fascia, the deltopectoral interval with 0 Quill fo llowed by 0 Quill and meagan for skin. Hemostasis having been controlled with the electrocautery an d with the ____. Blood loss approximately 200 mL. No complications, no drains. Compression dressin g and shoulder immobilizer is placed. Rogerio Edwards MD cc: [id number] TT: 09/11/2016 18:25:24 jn
[2016-09-12] MEDS: Sodium Chloride 0.9% 1,000 ML IV SCH ×3 (00:50→18:14)
[2016-09-12] MEDS: Levothyroxine 75 MCG TAB PO SCH (06:48)
[2016-09-12 07:34] LABS: BASO % 0.4 % (0.0-2.0); EOS % 0.4 % (0.0-4.0); HEMATOCRIT 30.8 % (34.0-47.0); LYMPH # 1.6 K/uL (1.0-4.3); LYMPH % 19.7 % (20.0-40.0); MEAN CELL VOLUME 88.6 fL (81.0-99.0); MEAN CORPUSCULAR HEMOGLOBIN 29.6 pg (27.0-31.0); MEAN CORPUSCULAR HGB CONC 33.4 g/dL (33.0-37.0); MEAN PLATELET VOLUME 10.6 fL (7.2-11.7); MONO # 0.7 K/uL (0.0-0.8); MONO % 8.2 % (0.0-10.0); RED CELL DISTRIBUTION WIDTH 13.3 % (11.5-14.5); WHITE BLOOD COUNT 8.1 K/uL (4.8-10.8)
[2016-09-12 08:14] LABS: CHLORIDE 100 mmol/L (98-107)
[2016-09-12 08:15] LABS: POTASSIUM 3.9 mmol/L (3.6-5.2); SODIUM 133 mmol/L (132-148)
[2016-09-12 08:17] LABS: ALB/GLOB RATIO 0.9 (1.0-2.1); BILIRUBIN,TOTAL 1.2 mg/dL (0.2-1.3); CARBON DIOXIDE 25 mmol/L (22-30); GFR AFRICAN-AMERICAN > 60; TOTAL PROTEIN 5.6 g/dL (6.3-8.3)
[2016-09-12 08:18] LABS: ALKALINE PHOSPHATASE 63 U/L (38-126); ALT/SGPT 21 U/L (9-52); AST/SGOT 30 U/L (14-36); BLOOD UREA NITROGEN 13 mg/dL (7-17); CALCIUM 7.6 mg/dl (8.6-10.4); GLUCOSE,RANDOM 121 mg/dL (65-105); PHOSPHOROUS 3.6 mg/dL (2.5-4.5)
[2016-09-12 08:19] LABS: MAGNESIUM 1.5 mg/dL (1.6-2.3)
[2016-09-12] MEDS: Pantoprazole 40 mg EC Tab PO SCH (09:15)
[2016-09-12] MEDS: (Novolin R) Insulin Human Regular 100 units/ml vial SC SCH ×4 (09:19→22:57)
--- NOTE | 2016-09-12 09:42 | CP.PCM.PN ---
Subjective - Date & Time of Evaluation Date of Evaluation: 09/12/16 Time of Evaluation: 10:26 - Subjective Subjective: Patient with son at bedside. She states the pain medication helps a little, but that she still has a lot of pain in her arm. Denies CP/SOB/dizzziness, numbness/ tingling. Objective - Vital Signs/Intake and Output Vital Signs (last 24 hours): Temp Pulse Resp BP Pulse Ox 99.2 F 84 18 94/61 L 98 09/12/16 06:50 09/12/16 06:50 09/12/16 00:42 09/12/16 06:50 09/12/16 00:42 - Medications Medications: Current Medications Alprazolam (Xanax) 0.5 mg PO TID PRN PRN Reason: Anxiety Last Admin: 09/10/16 19:08 Dose: 0.5 mg Ceftriaxone Sodium 1 gm/ (Sodium Chloride) 100 mls @ 100 mls/hr IVPB DAILY@ 0900 [facility] Last Admin: 09/12/16 08:47 Dose: 100 mls/hr Sodium Chloride (Sodium Chloride 0.9%) 1,000 mls @ 75 mls/hr IV .[id number] [facility] Last Admin: 09/12/16 06:48 Dose: 75 mls/hr Insulin Human Regular (Novolin R) 0 unit SC ACHS [facility] PRN Reason: Protocol Last Admin: 09/12/16 09:19 Dose: Not Given Levothyroxine Sodium (Synthroid) 75 mcg PO DAILY@0630 [facility] Last Admin: 09/12/16 06:48 Dose: 75 mcg Losartan Potassium (Cozaar) 100 mg PO DAILY [facility] Last Admin: 09/12/16 09:18 Dose: Not Given Metformin HCl (Glucophage) 1,000 mg PO BID [facility] Last Admin: 09/11/16 09:45 Dose: Not Given Morphine Sulfate (Morphine) 2 mg IVP Q4 PRN PRN Reason: Pain, severe (8-10) Last Admin: 09/10/16 18:05 Dose: 2 mg Oxycodone/Acetaminophen (Percocet 5/325 Mg Tab) 2 tab PO Q4H PRN PRN Reason: Pain, moderate (4-7) Stop: 09/14/16 15:57 Pantoprazole Sodium (Protonix Ec Tab) 40 mg PO DAILY [facility] Last Admin: 09/12/16 09:15 Dose: 40 mg - Labs Labs: 09/12/16 07:19 09/12/16 07:19 PT 14.3 SECONDS (9.7-12.2) H 09/09/16 11:48 INR 1.3 09/09/16 11:48 APTT 39 SECONDS (21-34) H 09/09/16 11:48 - Constitutional Appears: Well, No Acute Distress - Extremities Exam Additional comments: pt sitting in chair. Sling adjusted. LUE wrist splint intact (present on admission from 4 month old wrist fracture), non tender, noted shortening and deformity +radial pulse, sensation intact to rad/med/ulnar n. +ROM wrist/fingers/thumb add /abd/ext/flex, sensation intact to lateral shoulder. Dressing intact no visible drainage, mild swelling, no ecchymosis Assessment and Plan (1) Fracture dislocation of left shoulder joint Assessment & Plan: POD# 1 s/p left reverse total shoulder replacement -labs reviewed -pain medication adjusted -ASA 81mg PO BID for VTE proph as pt BMI > 40, encourage ankle pumps and OOB -d/c planning to [facility] vs home, PT/OT eval today -d/w son, considering discharge options -d/w Dr. Edwards, Agrees with above -pt son states that patient was to have ultrasound as outpatient when she fell and fractured shoulder. She has no peripheral edema of legs at this time, VSS, c parada soft NT neg homans, however for completeness and at son's request, will complete venous dopplers today. Status: Acute Radiology Interpretation - Radiology Interpretation #2 Interpretation: Patient Name / ID : ANA MONTENEGRO / [id number] Exam Date : 09/11/2016 16:34:23 ( Approved ) Study Comment : Sex / Age : F / 66Y Creator : Korey Velez MD Dictator : Korey Velez MD Systems Software Engineer : Wire Stretcher : Korey Velez MD Approver2 : Report Date : 09/11/2016 17:25:29 My Comment : PROCEDURE: Left Wrist Radiographs. HISTORY: pt in pacu, wrist fx f/u, remove splint for xrays COMPARISON: None. FINDINGS: BONES: Normal. No fractureKey old ulnar styloid fracture. Healing distal radial fracture. Diffuse osteopenia. No new/ acute fractures. . JOINTS: Normal. No dislocation. SOFT TISSUES: Normal. OTHER FINDINGS: None. IMPRESSION: No acute fractures. Healed ulnar styloid fracture, radiographic healing of distal radial fracture with mild ventral angulation. - Radiology Interpretation #3 Interpretation: Patient Name / ID : ANA MONTENEGRO / [id number] Exam Date : 09/11/2016 16:21:21 ( Approved ) Study Comment : Sex / Age : F / 66Y Creator : Korey Velez MD Dictator : Korey Velez MD Systems Software Engineer : Wire Stretcher : Korey Velez MD Approver2 : Report Date : 09/11/2016 17:02:31 My Comment : PROCEDURE: Radiographs of the Left Shoulder HISTORY: pt in pacu s/p total shoulder COMPARISON: No prior. FINDINGS: BONES: Satisfactory position alignment of components of the left shoulder arthroplasty. Humeral, intramedullary component satisfactory aligned as is the glenoid component. JOINTS: Normal. Glenohumeral and acromioclavicular joints preserved. No osteoarthritis. SOFT TISSUES: Normal. OTHER FINDINGS: None. IMPRESSION: Satisfactory postoperative status.
[2016-09-12] MEDS ORDERED: Magnesium Sulfate 1 gm in D5W 1 GM/100 ML BAG IVPB ONE (09:54)
[2016-09-12] MEDS ORDERED: HYDROmorphone 0.5 mg/0.5 ml ISec IVP PRN (09:56)
[2016-09-12] MEDS: Oxycodone/Acetaminophen 5/325 mg Tab PO PRN (18:13)
--- NOTE | 2016-09-12 19:16 | CP.PCM.PN ---
<Gustavo Case - Last Filed: 09/12/16 19:13> Subjective - Date & Time of Evaluation Date of Evaluation: 09/12/16 Time of Evaluation: 07:23 - Subjective Subjective: PGY 1 Medicine Note- Dr. Branham's service Pt seen and examined in no acute distress. Patient has left sided arm pain that is pain controlled. Patient s/p arthroplasty and rotator cuff repair. Patietn reported some back pain and had to be readjusted. At this time, patient denies subjective fevers, chills, nausea, vomiting, dysuria, chest pain, paresthesias, palpitations, headaches, lightheadedness, nausea, vomiting or urinary frequency. Objective - Vital Signs/Intake and Output Vital Signs (last 24 hours): Temp Pulse Resp BP Pulse Ox 97.6 F 64 20 94/63 L 97 09/12/16 16:00 09/12/16 16:00 09/12/16 16:00 09/12/16 16:00 09/12/16 16:00 Intake and Output: 09/12/16 09/13/16 18:59 06:59 Intake Total 480 Balance 480 - Medications Medications: Current Medications Alprazolam (Xanax) 0.5 mg PO TID PRN PRN Reason: Anxiety Last Admin: 09/10/16 19:08 Dose: 0.5 mg Aspirin (Ecotrin) 81 mg PO BID [facility] Last Admin: 09/12/16 17:55 Dose: 81 mg Hydromorphone HCl (Dilaudid) 0.5 mg IVP Q4H PRN PRN Reason: Pain, severe (8-10) Sodium Chloride (Sodium Chloride 0.9%) 1,000 mls @ 125 mls/hr IV .Q8H [facility] Last Admin: 09/12/16 18:14 Dose: 125 mls/hr Insulin Human Regular (Novolin R) 0 unit SC ACHS [facility] PRN Reason: Protocol Last Admin: 09/12/16 18:00 Dose: Not Given Levothyroxine Sodium (Synthroid) 75 mcg PO DAILY@0630 [facility] Last Admin: 09/12/16 06:48 Dose: 75 mcg Losartan Potassium (Cozaar) 100 mg PO DAILY [facility] Last Admin: 09/12/16 09:18 Dose: Not Given Metformin HCl (Glucophage) 1,000 mg PO BID [facility] Last Admin: 09/11/16 09:45 Dose: Not Given Oxycodone/Acetaminophen (Percocet 5/325 Mg Tab) 2 tab PO Q4H PRN PRN Reason: Pain, moderate (4-7) Stop: 09/14/16 15:57 Last Admin: 09/12/16 18:13 Dose: 2 tab Pantoprazole Sodium (Protonix Ec Tab) 40 mg PO DAILY [facility] Last Admin: 09/12/16 09:15 Dose: 40 mg - Labs Labs: 09/12/16 07:19 09/12/16 07:19 PT 14.3 SECONDS (9.7-12.2) H 09/09/16 11:48 INR 1.3 09/09/16 11:48 APTT 39 SECONDS (21-34) H 09/09/16 11:48 - Constitutional Appears: Non-toxic, No Acute Distress - Head Exam Head Exam: ATRAUMATIC, NORMAL INSPECTION, NORMOCEPHALIC - Eye Exam Eye Exam: EOMI, Normal appearance, PERRL - ENT Exam ENT Exam: Mucous Membranes Moist - Neck Exam Neck Exam: Full ROM - Respiratory Exam Respiratory Exam: Clear to Ausculation Bilateral, NORMAL BREATHING PATTERN. absent: Wheezes - Cardiovascular Exam Cardiovascular Exam: REGULAR RHYTHM, +S1, +S2 - GI/Abdominal Exam GI & Abdominal Exam: Soft, Normal Bowel Sounds - Extremities Exam Extremities Exam: absent: Full ROM - Back Exam Back Exam: Full ROM - Neurological Exam Neurological Exam: Alert, Awake, CN II-XII Intact, Oriented x3 - Psychiatric Exam Psychiatric exam: Normal Affect, Normal Mood - Skin Skin Exam: Dry, Normal Color, Warm Assessment and Plan - Assessment and Plan (Free Text) Assessment: (1) Fracture dislocation of left shoulder joint Status: Acute Comment: Humerus Xray- 09/09/16- Comminuted fracture of the proximal left humeral head and proximal humeral shaft. Patient s/p arthroplasty and rotator cuff repair 09/11. PT/OT recommended. F/U Ortho recommendations (2) Hypotension Status: Acute Comment: Hold Home meds at this time. N/S increased 125mls/hr (3) Diabetes Status: Acute Comment: Heart Healthy, moderate CHO diet. Accucheck. RISS. Metformin 1000mg PO BID HELD. Hgb 5.7 (4) Hyperlipidemia Status: Acute Comment: Patient is not currently on medications. FLP WNL. Continued Diet and exercise encouraged (5) Hypothyroid Status: Acute Comment: continue home med: levothyroxine 75mcg PO Daily . TSH WNL. F/U Free T4. Thyroid Calcifications noted on CT imaging. (6) Anxiety Status: Acute Comment: Xanax 0.5mg TID PRN (7) Prophylactic measure Status: Acute Comment: Protonix 40mg PO Daily. Hold Heparin due to preop. SCDs <Prasanna Branham M - Last Filed: 09/13/16 08:03> Objective - Vital Signs/Intake and Output Vital Signs (last 24 hours): Temp Pulse Resp BP Pulse Ox 98.5 F 73 18 104/66 96 09/13/16 04:00 09/13/16 05:48 09/13/16 04:00 09/13/16 05:48 09/13/16 04:00 Intake and Output: 09/13/16 09/13/16 06:59 18:59 Intake Total 1110 Balance 1110 - Medications Medications: Current Medications Alprazolam (Xanax) 0.5 mg PO TID PRN PRN Reason: Anxiety Last Admin: 09/10/16 19:08 Dose: 0.5 mg Aspirin (Ecotrin) 81 mg PO BID [facility] Last Admin: 09/12/16 17:55 Dose: 81 mg Hydromorphone HCl (Dilaudid) 0.5 mg IVP Q4H PRN PRN Reason: Pain, severe (8-10) Last Admin: 09/12/16 21:40 Dose: 0.5 mg Insulin Human Regular (Novolin R) 0 unit SC [facility] PRN Reason: Protocol Last Admin: 09/13/16 07:46 Dose: Not Given Levothyroxine Sodium (Synthroid) 75 mcg PO DAILY@0630 [facility] Last Admin: 09/13/16 05:45 Dose: 75 mcg Losartan Potassium (Cozaar) 100 mg PO DAILY [facility] Last Admin: 09/12/16 09:18 Dose: Not Given Metformin HCl (Glucophage) 1,000 mg PO BID [facility] Last Admin: 09/11/16 09:45 Dose: Not Given Oxycodone/Acetaminophen (Percocet 5/325 Mg Tab) 2 tab PO Q4H PRN PRN Reason: Pain, moderate (4-7) Stop: 09/14/16 15:57 Last Admin: 09/12/16 18:13 Dose: 2 tab Pantoprazole Sodium (Protonix Ec Tab) 40 mg PO DAILY [facility] Last Admin: 09/12/16 09:15 Dose: 40 mg - Labs Labs: 09/13/16 07:06 09/13/16 07:06 PT 14.3 SECONDS (9.7-12.2) H 09/09/16 11:48 INR 1.3 09/09/16 11:48 APTT 39 SECONDS (21-34) H 09/09/16 11:48 Attending/Attestation - Attestation I have personally seen and examined this patient.: Yes I have fully participated in the care of the patient.: Yes I have reviewed all pertinent clinical information, including history, physical exam and plan: Yes Notes (Text): 09/13/16 08:02 Patient was seen and examined at bedside with the resident. Complains of for mild pain at the site of surgery Discharge planning to subacute rehabilitation center I discussed with the resident and I agree with the above history and physical and assessment/plan by the resident.
[2016-09-13] MEDS: Sodium Chloride 0.9% 1,000 ML IV SCH ×2 (05:44→16:00)
[2016-09-13] MEDS: Levothyroxine 75 MCG TAB PO SCH (05:45)
[2016-09-13 07:19] LABS: BASO % 0.4 % (0.0-2.0); EOS # 0.1 K/uL (0.0-0.7); EOS % 1.7 % (0.0-4.0); LYMPH # 2.4 K/uL (1.0-4.3); MEAN CELL VOLUME 89.6 fL (81.0-99.0); MEAN CORPUSCULAR HGB CONC 33.4 g/dL (33.0-37.0); MEAN PLATELET VOLUME 10.3 fL (7.2-11.7); MONO # 0.7 K/uL (0.0-0.8); MONO % 8.7 % (0.0-10.0); NRBC % 0.1 % (0.0-2.0); RED CELL DISTRIBUTION WIDTH 13.4 % (11.5-14.5); WHITE BLOOD COUNT 7.7 K/uL (4.8-10.8)
--- NOTE | 2016-09-13 07:28 | CP.PCM.PN ---
Subjective - Date & Time of Evaluation Date of Evaluation: 09/13/16 Time of Evaluation: 07:21 - Subjective Subjective: Patient states that pain is a little bit better today. Denies CP/SOB/dizziness/ numbness/tingling. She says that she would prefer rehab to home as she will be alone during the day. Objective - Vital Signs/Intake and Output Vital Signs (last 24 hours): Temp Pulse Resp BP Pulse Ox 98.5 F 73 18 104/66 96 09/13/16 04:00 09/13/16 05:48 09/13/16 04:00 09/13/16 05:48 09/13/16 04:00 Intake and Output: 09/13/16 09/13/16 06:59 18:59 Intake Total 1110 Balance 1110 - Medications Medications: Current Medications Alprazolam (Xanax) 0.5 mg PO TID PRN PRN Reason: Anxiety Last Admin: 09/10/16 19:08 Dose: 0.5 mg Aspirin (Ecotrin) 81 mg PO BID [facility] Last Admin: 09/12/16 17:55 Dose: 81 mg Hydromorphone HCl (Dilaudid) 0.5 mg IVP Q4H PRN PRN Reason: Pain, severe (8-10) Last Admin: 09/12/16 21:40 Dose: 0.5 mg Sodium Chloride (Sodium Chloride 0.9%) 1,000 mls @ 125 mls/hr IV .Q8H [facility] Last Admin: 09/13/16 05:44 Dose: 125 mls/hr Insulin Human Regular (Novolin R) 0 unit SC [facility] PRN Reason: Protocol Last Admin: 09/12/16 22:57 Dose: Not Given Levothyroxine Sodium (Synthroid) 75 mcg PO DAILY@0630 [facility] Last Admin: 09/13/16 05:45 Dose: 75 mcg Losartan Potassium (Cozaar) 100 mg PO DAILY [facility] Last Admin: 09/12/16 09:18 Dose: Not Given Metformin HCl (Glucophage) 1,000 mg PO BID [facility] Last Admin: 09/11/16 09:45 Dose: Not Given Oxycodone/Acetaminophen (Percocet 5/325 Mg Tab) 2 tab PO Q4H PRN PRN Reason: Pain, moderate (4-7) Stop: 09/14/16 15:57 Last Admin: 09/12/16 18:13 Dose: 2 tab Pantoprazole Sodium (Protonix Ec Tab) 40 mg PO DAILY [facility] Last Admin: 09/12/16 09:15 Dose: 40 mg - Labs Labs: 09/12/16 07:19 09/12/16 07:19 PT 14.3 SECONDS (9.7-12.2) H 09/09/16 11:48 INR 1.3 09/09/16 11:48 APTT 39 SECONDS (21-34) H 09/09/16 11:48 - Extremities Exam Additional comments: LUE: dressing intact, scant sang drainage noted. No erythema. Mild swelling, shoulder area soft. Immobilizer intact. +ROM fingers/wrist/thumb flex/ext/add/ abd, sensation intact, +radial pulse Assessment and Plan (1) Fracture dislocation of left shoulder joint Assessment & Plan: POD# 2 s/p left total shoulder replacement reverse for fracture/dislocation -orthopedically stable for d/c to rehab -Dressing to left shoulder to remain intact until 09/18 and then can be removed and dry sterile dressing applied -Maintain shoulder immobilizer at all times -f/u Dr. Edwards 7-10 days call for appointment [phone] -PT/OT -encourage OOB -d/w Dr. Edwards, agrees with above Status: Acute
[2016-09-13 07:45] LABS: CHLORIDE 102 mmol/L (98-107); SODIUM 134 mmol/L (132-148)
[2016-09-13 07:46] LABS: POTASSIUM 3.9 mmol/L (3.6-5.2)
[2016-09-13] MEDS: (Novolin R) Insulin Human Regular 100 units/ml vial SC SCH ×4 (07:46→22:54)
[2016-09-13 07:47] LABS: GFR AFRICAN-AMERICAN > 60
[2016-09-13 07:48] LABS: ALB/GLOB RATIO 0.8 (1.0-2.1); ALKALINE PHOSPHATASE 67 U/L (38-126); ALT/SGPT 20 U/L (9-52); AST/SGOT 23 U/L (14-36); BILIRUBIN,TOTAL 1.1 mg/dL (0.2-1.3); BLOOD UREA NITROGEN 10 mg/dL (7-17); CARBON DIOXIDE 26 mmol/L (22-30); GLUCOSE,RANDOM 108 mg/dL (65-105); PHOSPHOROUS 3.1 mg/dL (2.5-4.5); TOTAL PROTEIN 5.5 g/dL (6.3-8.3)
[2016-09-13 07:49] LABS: CALCIUM 7.5 mg/dl (8.6-10.4); MAGNESIUM 1.8 mg/dL (1.6-2.3)
[2016-09-13 08:17] VITALS: RESP 20
[2016-09-13] MEDS: Oxycodone/Acetaminophen 5/325 mg Tab PO PRN ×2 (08:45→20:45)
[2016-09-13] MEDS: Pantoprazole 40 mg EC Tab PO SCH (09:31)
--- NOTE | 2016-09-13 14:38 | CP.PCM.PN ---
<Gustavo Case - Last Filed: 09/13/16 14:33> Subjective - Date & Time of Evaluation Date of Evaluation: 09/13/16 Time of Evaluation: 07:23 - Subjective Subjective: PGY 1 Medicine Note- Dr. Branham's service Pt seen and examined in no acute distress. Patient has left sided arm pain that is pain controlled. She also applies ice to the affected area on and off. Patient is s/p arthroplasty and rotator cuff repair. Patient reported some back pain and had to be readjusted. At this time, patient denies subjective fevers, chills, nausea, vomiting, dysuria, chest pain, paresthesias, palpitations, headaches, lightheadedness, abdominal pain, calf pain ,or urinary frequency. Objective - Vital Signs/Intake and Output Vital Signs (last 24 hours): Temp Pulse Resp BP Pulse Ox 99.1 F 67 20 104/64 97 09/13/16 07:37 09/13/16 07:37 09/13/16 07:37 09/13/16 07:37 09/13/16 07:37 Intake and Output: 09/13/16 09/13/16 06:59 18:59 Intake Total 1110 Balance 1110 - Medications Medications: Current Medications Alprazolam (Xanax) 0.5 mg PO TID PRN PRN Reason: Anxiety Last Admin: 09/10/16 19:08 Dose: 0.5 mg Aspirin (Ecotrin) 81 mg PO BID [facility] Last Admin: 09/13/16 09:31 Dose: 81 mg Hydromorphone HCl (Dilaudid) 0.5 mg IVP Q4H PRN PRN Reason: Pain, severe (8-10) Last Admin: 09/12/16 21:40 Dose: 0.5 mg Insulin Human Regular (Novolin R) 0 unit SC ACHS [facility] PRN Reason: Protocol Last Admin: 09/13/16 11:16 Dose: Not Given Levothyroxine Sodium (Synthroid) 75 mcg PO DAILY@0630 [facility] Last Admin: 09/13/16 05:45 Dose: 75 mcg Losartan Potassium (Cozaar) 100 mg PO DAILY [facility] Last Admin: 09/13/16 09:31 Dose: 100 mg Metformin HCl (Glucophage) 1,000 mg PO BID [facility] Last Admin: 09/11/16 09:45 Dose: Not Given Oxycodone/Acetaminophen (Percocet 5/325 Mg Tab) 2 tab PO Q4H PRN PRN Reason: Pain, moderate (4-7) Stop: 09/14/16 15:57 Last Admin: 09/13/16 08:45 Dose: 2 tab Pantoprazole Sodium (Protonix Ec Tab) 40 mg PO DAILY [facility] Last Admin: 09/13/16 09:31 Dose: 40 mg - Labs Labs: 09/13/16 07:06 09/13/16 07:06 PT 14.3 SECONDS (9.7-12.2) H 09/09/16 11:48 INR 1.3 09/09/16 11:48 APTT 39 SECONDS (21-34) H 09/09/16 11:48 - Constitutional Appears: Non-toxic, No Acute Distress - Head Exam Head Exam: ATRAUMATIC, NORMAL INSPECTION, NORMOCEPHALIC - Eye Exam Eye Exam: EOMI, Normal appearance, PERRL Pupil Exam: NORMAL ACCOMODATION, PERRL - ENT Exam ENT Exam: Mucous Membranes Moist, Normal Exam - Neck Exam Neck Exam: Full ROM - Respiratory Exam Respiratory Exam: NORMAL BREATHING PATTERN. absent: Wheezes - Cardiovascular Exam Cardiovascular Exam: +S1, +S2 - GI/Abdominal Exam GI & Abdominal Exam: Soft, Normal Bowel Sounds - Extremities Exam Extremities Exam: Normal Capillary Refill, Normal Inspection. absent: Full ROM Additional comments: dressing clean, dry and intact, limited rom of left shoulder joint as it is in an immobilizer - Back Exam Back Exam: Full ROM, NORMAL INSPECTION - Neurological Exam Neurological Exam: Alert, Awake, CN II-XII Intact, Oriented x3 Additional comments: sensation intact to temperature, light touch - Psychiatric Exam Psychiatric exam: Normal Affect, Normal Mood - Skin Skin Exam: Dry, Normal Color, Warm Assessment and Plan - Assessment and Plan (Free Text) Assessment: (1) S/P Arthoplasty and Rotator cuff repair of left shoulder joint Status: Acute Comment: Humerus Xray- 09/09/16- Comminuted fracture of the proximal left humeral head and proximal humeral shaft. Patient s/p arthroplasty and rotator cuff repair 09/11. PT/OT on board. F/U Ortho recommendations (2) Hypotension Status: Acute Comment: Hold Home meds at this time. N/S 75mls/hr. Monitor (3) Diabetes Status: Acute Comment: Heart Healthy, moderate CHO diet. Accucheck. RISS. Metformin 1000mg PO BID HELD. Hgb 5.7 (4) Hyperlipidemia Status: Acute Comment: Patient is not currently on medications. FLP WNL. Continued Diet and exercise encouraged (5) Hypothyroid Status: Acute Comment: continue home med: levothyroxine 75mcg PO Daily . TSH WNL. Free T4 WNL. Thyroid Calcifications noted on CT imaging. (6) Anxiety Status: Acute Comment: Xanax 0.5mg TID PRN (7) Prophylactic measure Status: Acute Comment: Protonix 40mg PO Daily. Heparin SC Q8H. SCDs Disposition DASH pending authorization from insurance <Prasanna Branham - Last Filed: 09/13/16 16:51> Objective - Vital Signs/Intake and Output Vital Signs (last 24 hours): Temp Pulse Resp BP Pulse Ox 97.8 F 68 20 86/58 L 95 09/13/16 15:29 09/13/16 15:29 09/13/16 15:29 09/13/16 15:29 09/13/16 15:29 Intake and Output: 09/13/16 09/13/16 06:59 18:59 Intake Total 1110 Balance 1110 - Medications Medications: Current Medications Alprazolam (Xanax) 0.5 mg PO TID PRN PRN Reason: Anxiety Last Admin: 09/10/16 19:08 Dose: 0.5 mg Aspirin (Ecotrin) 81 mg PO BID [facility] Last Admin: 09/13/16 09:31 Dose: 81 mg Heparin Sodium (Porcine) (Heparin) 5,000 units SC Q8 [facility] Hydromorphone HCl (Dilaudid) 0.5 mg IVP Q4H PRN PRN Reason: Pain, severe (8-10) Last Admin: 09/12/16 21:40 Dose: 0.5 mg Sodium Chloride (Sodium Chloride 0.9%) 1,000 mls @ 125 mls/hr IV .Q8H [facility] Insulin Human Regular (Novolin R) 0 unit SC ACHS [facility] PRN Reason: Protocol Last Admin: 09/13/16 11:16 Dose: Not Given Levothyroxine Sodium (Synthroid) 75 mcg PO DAILY@0630 [facility] Last Admin: 09/13/16 05:45 Dose: 75 mcg Losartan Potassium (Cozaar) 100 mg PO DAILY [facility] Metformin HCl (Glucophage) 1,000 mg PO BID [facility] Last Admin: 09/11/16 09:45 Dose: Not Given Oxycodone/Acetaminophen (Percocet 5/325 Mg Tab) 2 tab PO Q4H PRN PRN Reason: Pain, moderate (4-7) Stop: 09/14/16 15:57 Last Admin: 09/13/16 08:45 Dose: 2 tab Pantoprazole Sodium (Protonix Ec Tab) 40 mg PO DAILY [facility] Last Admin: 09/13/16 09:31 Dose: 40 mg - Labs Labs: 09/13/16 07:06 09/13/16 07:06 PT 14.3 SECONDS (9.7-12.2) H 09/09/16 11:48 INR 1.3 09/09/16 11:48 APTT 39 SECONDS (21-34) H 09/09/16 11:48 Attending/Attestation - Attestation I have personally seen and examined this patient.: Yes I have fully participated in the care of the patient.: Yes I have reviewed all pertinent clinical information, including history, physical exam and plan: Yes Notes (Text): 09/13/16 16:50 Patient was seen and examined at bedside with the resident Patient complains of some pain at the site of surgery Discharge planning to subacute rehabilitation center I discussed the plan of care with the resident and agree with the above history and physical and assessment/plan.
[2016-09-13] MEDS ORDERED: Sodium Chloride 0.9% 1,000 ML IV SCH (14:45)
--- NOTE | 2016-09-13 15:06 | VASCLAB ---
PROCEDURE: Lower Extremity Venous Duplex Exam. HISTORY: swelling, r/o DVT PRIORS: None. TECHNIQUE: Bilateral common femoral, femoral, popliteal and posterior tibial, peroneal and great saphenous veins were evaluated. Flow was assessed with color Doppler, compressibility, assessment of phasic flow and augmentation response. Report prepared by Dilan Taylor, YUVAL, RVT FINDINGS: RIGHT: 1. Common Femoral Vein: 1.1. Compressibility - Fully compressible: Thrombus - None : Flow - Phasic: Augmentation -Normal: Reflux - None. 2. Femoral Vein: 2.1. Compressibility - Fully compressible: Thrombus - None : Flow - Phasic: Augmentation -Normal: Reflux - None. 3. Popliteal Vein: 3.1. Compressibility - Fully compressible: Thrombus - None : Flow - Phasic: Augmentation -Normal: Reflux - None. 4. Posterior Tibial Vein: 4.1. Compressibility - Fully compressible: Thrombus - None: Flow - Phasic: Augmentation -Normal: Reflux - None. 5. Peroneal Vein: 5.1. Compressibility - Fully compressible: Thrombus - None: Flow - Phasic: Augmentation -Normal: Reflux - None. 6. Great Saphenous Vein: 6.1. Compressibility - Fully compressible: Thrombus - None: Flow - Phasic: Augmentation - Normal: Reflux - Severe. LEFT: 1. Common Femoral Vein: 1.1. Compressibility - Fully compressible: Thrombus - None: Flow - Phasic: Augmentation -Normal: Reflux - None. 2. Femoral Vein: 2.1. Compressibility - Fully compressible: Thrombus - None: Flow - Phasic: Augmentation -Normal: Reflux - None. 3. Popliteal Vein: 3.1. Compressibility - Fully compressible: Thrombus - None : Flow - Phasic: Augmentation -Normal: Reflux - None. 4. Posterior Tibial Vein: 4.1. Compressibility - Fully compressible: Thrombus - None: Flow - Phasic: Augmentation -Normal: Reflux - None. 5. Peroneal Vein: 5.1. Compressibility - Fully compressible: Thrombus - None: Flow - Phasic: Augmentation -Normal: Reflux - None. 6. Great Saphenous Vein: 6.1. Compressibility - Fully compressible: Thrombus - None: Flow - Phasic: Augmentation - Normal: Reflux - None. OTHER FINDINGS: Right: Severe valvular incompetence of the right greater saphenous vein. Left: None significant. IMPRESSION: Right: No evidence of deep or superficial vein thrombosis of the right lower extremity. Left: No evidence of deep or superficial vein thrombosis of the left lower extremity. Normal valve function noted of the left side.
[2016-09-14] MEDS ORDERED: Sodium Chloride 0.9% 500 ML IV ONE ×2 (00:08→09:29)
[2016-09-14] MEDS: Sodium Chloride 0.9% 1,000 ML IV SCH (00:38)
[2016-09-14] MEDS: Levothyroxine 75 MCG TAB PO SCH (05:54)
[2016-09-14] MEDS ORDERED: Oxycodone/Acetaminophen 5/325 mg Tab PO PRN (07:12)
[2016-09-14 07:36] LABS: BASO % 0.3 % (0.0-2.0); EOS # 0.2 K/uL (0.0-0.7); EOS % 2.7 % (0.0-4.0); LYMPH # 2.2 K/uL (1.0-4.3); LYMPH % 33.9 % (20.0-40.0); MEAN CELL VOLUME 89.7 fL (81.0-99.0); MEAN CORPUSCULAR HEMOGLOBIN 29.4 pg (27.0-31.0); MEAN CORPUSCULAR HGB CONC 32.8 g/dL (33.0-37.0); MEAN PLATELET VOLUME 10.5 fL (7.2-11.7); MONO # 0.5 K/uL (0.0-0.8); MONO % 7.8 % (0.0-10.0); NRBC % 0.1 % (0.0-2.0); RED CELL DISTRIBUTION WIDTH 13.4 % (11.5-14.5); WHITE BLOOD COUNT 6.5 K/uL (4.8-10.8)
[2016-09-14 07:43] LABS: CHLORIDE 105 mmol/L (98-107); SODIUM 135 mmol/L (132-148)
[2016-09-14 07:45] LABS: AST/SGOT 27 U/L (14-36); BILIRUBIN,TOTAL 0.7 mg/dL (0.2-1.3); CARBON DIOXIDE 24 mmol/L (22-30); GFR AFRICAN-AMERICAN > 60
[2016-09-14 07:46] LABS: ALB/GLOB RATIO 0.8 (1.0-2.1); ALKALINE PHOSPHATASE 63 U/L (38-126); ALT/SGPT 23 U/L (9-52); BLOOD UREA NITROGEN 13 mg/dL (7-17); GLUCOSE,RANDOM 105 mg/dL (65-105); PHOSPHOROUS 3.7 mg/dL (2.5-4.5); TOTAL PROTEIN 5.2 g/dL (6.3-8.3)
[2016-09-14 07:47] LABS: CALCIUM 7.5 mg/dl (8.6-10.4); MAGNESIUM 1.8 mg/dL (1.6-2.3)
[2016-09-14 08:13] VITALS: BP 108/69; PULSE 73; TEMP 99.1; O2SAT 95
[2016-09-14] MEDS: (Novolin R) Insulin Human Regular 100 units/ml vial SC SCH ×2 (09:24→12:49)
[2016-09-14] MEDS: Pantoprazole 40 mg EC Tab PO SCH (09:24)
--- NOTE | 2016-09-14 09:29 | CP.PCM.PN ---
Subjective - Date & Time of Evaluation Date of Evaluation: 09/14/16 Time of Evaluation: 09:27 - Subjective Subjective: D/c held due to low BP per medical team Shoulder pain continues but is controlled, patient has not been taking the dilaudid. Objective - Vital Signs/Intake and Output Vital Signs (last 24 hours): Temp Pulse Resp BP Pulse Ox 99.1 F 73 20 108/69 95 09/14/16 07:00 09/14/16 07:00 09/14/16 07:00 09/14/16 07:00 09/14/16 07:00 Intake and Output: 09/14/16 09/14/16 06:59 18:59 Intake Total 2950 Output Total 600 Balance 2350 - Medications Medications: Current Medications Alprazolam (Xanax) 0.5 mg PO TID PRN PRN Reason: Anxiety Last Admin: 09/10/16 19:08 Dose: 0.5 mg Aspirin (Ecotrin) 81 mg PO BID [facility] Last Admin: 09/14/16 09:24 Dose: 81 mg Heparin Sodium (Porcine) (Heparin) 5,000 units SC Q8 [facility] Last Admin: 09/14/16 05:54 Dose: 5,000 units Hydromorphone HCl (Dilaudid) 0.5 mg IVP Q4H PRN PRN Reason: Pain, severe (8-10) Last Admin: 09/12/16 21:40 Dose: 0.5 mg Sodium Chloride (Sodium Chloride 0.9%) 1,000 mls @ 125 mls/hr IV .Q8H [facility] Last Admin: 09/14/16 00:38 Dose: 125 mls/hr Insulin Human Regular (Novolin R) 0 unit SC ACHS [facility] PRN Reason: Protocol Last Admin: 09/14/16 09:24 Dose: Not Given Levothyroxine Sodium (Synthroid) 75 mcg PO DAILY@0630 [facility] Last Admin: 09/14/16 05:54 Dose: 75 mcg Losartan Potassium (Cozaar) 100 mg PO DAILY [facility] Metformin HCl (Glucophage) 1,000 mg PO BID [facility] Last Admin: 09/11/16 09:45 Dose: Not Given Oxycodone/Acetaminophen (Percocet 5/325 Mg Tab) 1 tab PO Q4H PRN PRN Reason: Pain, severe (8-10) Stop: 09/17/16 07:13 Pantoprazole Sodium (Protonix Ec Tab) 40 mg PO DAILY [facility] Last Admin: 09/14/16 09:24 Dose: 40 mg - Labs Labs: 09/14/16 05:47 09/14/16 05:47 PT 14.3 SECONDS (9.7-12.2) H 09/09/16 11:48 INR 1.3 09/09/16 11:48 APTT 39 SECONDS (21-34) H 09/09/16 11:48 - Extremities Exam Additional comments: LUE: shoulder immob intact, +ROM fingers/wrist, sensation intact, dressing intact, no increased swelling. Assessment and Plan (1) Fracture dislocation of left shoulder joint Assessment & Plan: PDO#3 s/p left shoulder replacement, reverse d/c held for low bp dilaudid d/c'd ortho stable for d/c dressing must be removed Monday 09/18 and replaced with dry sterile dressing continue shoulder immobilizer at all times f/u 7-10 days call for appt [phone] d/w Dr. Edwards, agrees with above Status: Acute
--- NOTE | 2016-09-14 11:00 | CP.PCM.DIS ---
Provider - Provider Date of Admission: 09/09/16 11:04 Attending physician: Prasanna Branham MD Hospital Course - Lab Results Lab Results: Micro Results 09/11/16 08:25 Urine,Clean Catch Urine Culture - Final <10,000 CFU/ML. MULTIPLE SPECIES. PROBABLE CONTAMINATION. Most Recent Lab Values WBC 6.5 K/uL (4.8-10.8) 09/14/16 05:47 RBC 2.78 Mil/uL (3.80-5.20) L 09/14/16 05:47 Hgb 8.2 g/dL (11.0-16.0) L 09/14/16 05:47 Hct 25.0 % (34.0-47.0) L 09/14/16 05:47 MCV 89.7 fL (81.0-99.0) 09/14/16 05:47 MCH 29.4 pg (27.0-31.0) 09/14/16 05:47 MCHC 32.8 g/dL (33.0-37.0) L 09/14/16 05:47 RDW 13.4 % (11.5-14.5) 09/14/16 05:47 Plt Count 154 K/uL (130-400) 09/14/16 05:47 MPV 10.5 fL (7.2-11.7) 09/14/16 05:47 Neut % (Auto) 55.3 % (50.0-75.0) 09/14/16 05:47 Lymph % (Auto) 33.9 % (20.0-40.0) 09/14/16 05:47 [place] % (Auto) 7.8 % (0.0-10.0) 09/14/16 05:47 Eos % (Auto) 2.7 % (0.0-4.0) 09/14/16 05:47 Baso % (Auto) 0.3 % (0.0-2.0) 09/14/16 05:47 Neut # 3.6 K/uL (1.8-7.0) 09/14/16 05:47 Lymph # 2.2 K/uL (1.0-4.3) 09/14/16 05:47 [place] # 0.5 K/uL (0.0-0.8) 09/14/16 05:47 Eos # 0.2 K/uL (0.0-0.7) 09/14/16 05:47 Baso # 0.0 K/uL (0.0-0.2) 09/14/16 05:47 Neutrophils % (Manual) 86 % (50-75) H 09/09/16 11:48 Band Neutrophils % 1 % (0-2) 09/09/16 11:48 Lymphocytes % (Manual) 7 % (20-40) L 09/09/16 11:48 Reactive Lymphs % 1 % (0-0) H 09/09/16 11:48 Monocytes % (Manual) 5 % (0-10) 09/09/16 11:48 Platelet Estimate Normal (NORMAL) 09/09/16 11:48 Anisocytosis (manual) Slight 09/09/16 11:48 PT 14.3 SECONDS (9.7-12.2) H 09/09/16 11:48 INR 1.3 09/09/16 11:48 APTT 39 SECONDS (21-34) H 09/09/16 11:48 Sodium 135 mmol/L (132-148) 09/14/16 05:47 Potassium 4.0 mmol/L (3.6-5.2) 09/14/16 05:47 Chloride 105 mmol/L (98-107) 09/14/16 05:47 Carbon Dioxide 24 mmol/L (22-30) 09/14/16 05:47 Anion Gap 10 (10-20) 09/14/16 05:47 BUN 13 mg/dL (7-17) 09/14/16 05:47 Creatinine 0.5 MG/DL (0.7-1.2) L 09/14/16 05:47 Est GFR ( Amer) > 60 09/14/16 05:47 Est GFR (Non-Af Amer) > 60 09/14/16 05:47 POC Glucose (mg/dL) 130 mg/dL (65-110) H 09/14/16 06:22 Random Glucose 105 mg/dL (65-105) 09/14/16 05:47 Hemoglobin A1c 5.7 % (4.2-6.5) 09/10/16 07:26 Calcium 7.5 mg/dl (8.6-10.4) L 09/14/16 05:47 Phosphorus 3.7 mg/dL (2.5-4.5) 09/14/16 05:47 Magnesium 1.8 mg/dL (1.6-2.3) 09/14/16 05:47 Total Bilirubin 0.7 mg/dL (0.2-1.3) 09/14/16 05:47 AST 27 U/L (14-36) 09/14/16 05:47 ALT 23 U/L (9-52) 09/14/16 05:47 Alkaline Phosphatase 63 U/L (38-126) 09/14/16 05:47 Total Protein 5.2 g/dL (6.3-8.3) L 09/14/16 05:47 Albumin 2.3 g/dL (3.5-5.0) L 09/14/16 05:47 Globulin 2.8 gm/dL (2.2-3.9) 09/14/16 05:47 Albumin/Globulin Ratio 0.8 (1.0-2.1) L 09/14/16 05:47 Triglycerides 85 mg/dL (0-149) 09/10/16 07:26 Cholesterol 144 mg/dL (0-199) 09/10/16 07:26 LDL Cholesterol Direct 66 mg/dL (0-129) 09/10/16 07:26 HDL Cholesterol 44 mg/dL (30-70) 09/10/16 07:26 Free T4 1.07 ng/dL (0.78-2.19) 09/12/16 07:19 TSH 3rd Generation 1.95 mIU/L (0.46-4.68) 09/11/16 07:51 Urine Color Yellow (YELLOW) 09/10/16 17:17 Urine Clarity Clear (Clear) 09/10/16 17:17 Urine pH 7.0 (5.0-8.0) 09/10/16 17:17 Ur Specific [place] 1.008 (1.003-1.030) 09/10/16 17:17 Urine Protein Negative mg/dL (NEGATIVE) 09/10/16 17:17 Urine Glucose (UA) Normal mg/dL (Normal) 09/10/16 17:17 Urine Ketones Negative mg/dL (NEGATIVE) 09/10/16 17:17 Urine Blood 1+ (NEGATIVE) H 09/10/16 17:17 Urine Nitrate Negative (NEGATIVE) 09/10/16 17:17 Urine Bilirubin Negative (NEGATIVE) 09/10/16 17:17 Urine Urobilinogen Normal mg/dL (0.2-1.0) 09/10/16 17:17 Ur Leukocyte Esterase 3+ [place]/uL (Negative) H 09/10/16 17:17 Urine WBC (Auto) 29 /hpf (0-5) H 09/10/16 17:17 Urine RBC (Auto) < 1 /hpf (0-3) 09/10/16 17:17 Ur Squamous Epith Cells 2 /hpf (0-5) 09/10/16 17:17 Urine Bacteria Few (<OCC) H 09/10/16 17:17 Blood Type O POSITIVE 09/09/16 11:48 Antibody Screen Negative 09/09/16 11:48 Discharge Exam - Head Exam Head Exam: ATRAUMATIC, NORMAL INSPECTION, NORMOCEPHALIC Discharge Plan - Follow Up Plan Condition: STABLE Disposition: REHAB FACILITY/REHAB UNIT Additional Instructions: Patient is medically and orthopedically stable for discharge to subacute rehab. Patient should follow up with Dr. Edwards in 7-10 days . She should call for an appointment. Dressing to left shoulder to remain intact until 09/18 and then can be removed and dry sterile dressing applied as per Orthopedic surgery team. Patient shoudl keep the shoulder immobilizer in place. Patient's blood pressure is to be monitored because it runs on the hypotensive side; though asymptomatic. Patient should follow up with primary medical doctor within one week upon leaving subacute rehab regarding further workup for incidental findings of calcifications on thyroid seen on CT imaging. Patient to continue medications that were indicated upon discharge. If symptoms return, go to the Emergency Room. Instructions have been explained to patient who is aware. Referrals: Rogerio Edwards III, MD [Staff Provider] -
--- NOTE | 2016-09-15 16:52 | CARD ---
APPROVED REPORT EKG Measurement Heart [id number] <Conclusion> Sinus rhythm with occasional ventricular-paced complexes Voltage criteria for left ventricular hypertrophy Nonspecific T wave abnormality Prolonged QT Abnormal ECG
== END 2016-09-14 16:00 | DRG 491 ==
LOC: C.ER 09:04 → C.9E 11:04 → C.6T 11:48
PROVIDERS: ADMIT Internal Medicine; ATTEND Internal Medicine
PROC: 0LQ20ZZ Repair Left Shoulder Tendon, Open Approach (ICD-10-PCS; 2016-09-11)
PROC: 0LS40ZZ Reposition Left Upper Arm Tendon, Open Approach (ICD-10-PCS; 2016-09-11)
PROC: 0RRK00Z Replacement of Left Shoulder Joint with Reverse Ball and Socket Synthetic Substitute, Open Approach (ICD-10-PCS; principal; 2016-09-11 12:40)
DX: S42.352A Displaced comminuted fracture of shaft of humerus, left arm, initial encounter for closed fracture (principal); I95.9 Hypotension, unspecified; I10 Essential (primary) hypertension; S42.292A Other displaced fracture of upper end of left humerus, initial encounter for closed fracture; W01.0XXA Fall on same level from slipping, tripping and stumbling without subsequent striking against object, initial encounter; Y92.531 Health care provider office as the place of occurrence of the external cause; M85.812 Other specified disorders of bone density and structure, left shoulder; E11.9 Type 2 diabetes mellitus without complications; E78.5 Hyperlipidemia, unspecified; E03.9 Hypothyroidism, unspecified; S43.035A Inferior dislocation of left humerus, initial encounter; Z79.84 Long term (current) use of oral hypoglycemic drugs; F41.9 Anxiety disorder, unspecified; Z91.81 History of falling

== ENCOUNTER 2016-11-09 21:01 | Emergency (ER) | payer SELFPAY ==
[2016-11-09 21:55] VITALS: BMI 44.5
[2016-11-09 22:00] VITALS: RESP 18
--- NOTE | 2016-11-09 22:25 | C.PDOC ---
History Of Present Illness Patient c/o low back pain, radiating to the right buttock, right posterior leg for 1 month. Patient denies any recent trauma. Patient was seen multiple times with PMD and was given Tylenol and Ibuprofen without relieve of symptoms. Time Seen by Provider: 11/09/16 22:15 Chief Complaint (Nursing): Lower Extremity Problem/Injury History Per: Patient, Family History/Exam Limitations: no limitations Onset/Duration Of Symptoms: Other (1 month) Current Symptoms Are (Timing): Worse Severity: Severe Pain Scale Rating Of: 10 Past Medical History Reviewed: Historical Data, Nursing Documentation, Vital Signs Vital Signs: Last Vital Signs Temp 97.4 F L 11/09/16 21:55 Pulse 74 11/09/16 21:55 Resp 18 11/09/16 21:55 BP 102/63 11/09/16 21:55 Pulse Ox 97 11/09/16 22:54 - Medical History PMH: Arthritis, Diabetes, Fractures, HTN, Hypothyroidism Denies: Chronic Kidney Disease - [facility] Procedures REPAIR LEFT SHOULDER TENDON, OPEN APPROACH (09/09/16) REPLACE OF L SHOULDER JT WITH REV BL & SOCKT, OPEN APPROACH (09/09/16) REPOSITION LEFT UPPER ARM TENDON, OPEN APPROACH (09/09/16) Family History: States: Unknown Family Hx - Social History Hx Tobacco Use: No Hx Alcohol Use: No Hx Substance Use: No - Immunization History Hx Tetanus Toxoid Vaccination: No Hx Influenza Vaccination: No Hx Pneumococcal Vaccination: No Review Of Systems Except As Marked, All Systems Reviewed And Found Negative. Musculoskeletal: Positive for: Back Pain, Leg Pain Physical Exam - Physical Exam Appears: Non-toxic, No Acute Distress, Other (uncomfortable) Skin: Normal Color, Warm, No Rash Head: Atraumatic, Normacephalic Eye(s): bilateral: Normal Inspection Neck: Normal, Normal ROM Chest: Symmetrical, No Tenderness Cardiovascular: Rhythm Regular Respiratory: Normal Breath Sounds Gastrointestinal/Abdominal: Soft, No Tenderness, No Mass Back: Vertebral Tenderness (LS spine), Paraspinal Tenderness (LS right), Straight Leg Raising (pos at 45 degree) Extremity: No Calf Tenderness, No Deformity Neurological/Psych: Oriented x3, Normal Speech, Normal Cognition, Normal Motor, Normal Sensation ED Course And Treatment O2 Sat by Pulse Oximetry: 97 Progress Note: Patient was treated with Toradol IM, Lidoderm patch and Percocet po. On re-evaluation, she feels better. She is able to ambulate with cane. Patient will be d/c home with PMD follow up. Disposition - Disposition Referrals: Nehemias Valdovinos, ALFREDO, INSTITUTIONAL COMMODITY ANALYST [Advanced Practice Nurse] - [employer] [facility] [Outside] [facility] [Outside] Disposition: HOME/ ROUTINE Disposition Time: 22:51 Condition: IMPROVED Additional Instructions: Follow up with your PMD and retail customer service specialist within 1-2 days. Return to ED immediately if feel worse. Prescriptions: Lidocaine 5% [Lidoderm] 1 patch TP DAILY #30 patch oxyCODONE/Acetaminophen [Percocet 5/325 mg Tab] 1 tab PO QID PRN #20 tab PRN Reason: Pain Instructions: Lumbar Radiculopathy (ED) Forms: [employer] (Omani) Print Language: CITIZEN OF [place] - Clinical Impression Clinical Impression: Lumbar radiculopathy
[2016-11-09] MEDS ORDERED: Lidocaine 5% Patch TD STA (22:27)
[2016-11-09] MEDS ORDERED: Oxycodone/Acetaminophen 5/325 mg Tab PO STA (22:27)
[2016-11-09] MEDS ORDERED: Oxycodone/Acetaminophen 5/325 mg Tab ONE (22:37)
[2016-11-09] MEDS ORDERED: Lidocaine 5% Patch TD ONE (22:38)
[2016-11-09 23:34] VITALS: BP 117/78; PULSE 69; TEMP 97.6; O2SAT 98
--- NOTE | 2016-11-10 08:36 | RAD ---
PROCEDURE: Radiographs of the Lumbar Spine. HISTORY: atraumatic back pain, R sciatica COMPARISON: No prior. FINDINGS: BONES: There is an accentuated lumbar lordotic curvature with either splinting or a subtle dextroscoliotic deformity. Limited spondylolisthesis ease, grade 1, are seen in L2-3 with L2 posterior L3 by less than 1 cm, and at L3-4, for L3 is slightly posterior L4 also by less than 1 cm, and also at L4-5 with L4 slightly anterior to L5 by less than 1 cm. Gross facet joint arthropathy is appreciated at L5-S1 and L4-5 with possible spondylolysis at L5-S1. Further characterization by MRI or CT is advised. Vacuum disc change identified L5-S1 and limited multilevel mild S lumbar spondylosis identified. Prominent inferior thoracic spondylosis identified and there is a moderate anterior wedge compression fracture T12 which is indeterminate in age. DISC SPACES: As above OTHER FINDINGS: None. IMPRESSION: And extensor cowan lordotic curvature identified with multiple grade 1 spondylolisthesis these at L2-3 L3-4 and L4-5. Possible spondylolysis L5-S1. Incidental moderate anterior wedge compression fracture T12. Follow-up CT or MRI may be helpful.
== END 2016-11-09 23:35 | disposition home or self-care (01) ==
LOC: C.ER 21:01
DX: M54.16 Radiculopathy, lumbar region (principal)
CPT/HCPCS: 72100; 96372; 99284; J1885